=== PATIENT | male | born 1960 ===

== ENCOUNTER → 2021-07-19 | Outpatient (CLI) | payer BC | LOC: COL.VAS 11:48 | DX: R07.9 Chest pain, unspecified (principal) ==

== ENCOUNTER 2021-07-25 09:26 | Day surgery (SDC) | payer BC ==
--- NOTE | 2021-07-22 20:20 | NUR ---
Called pt to gather pre-op information for heart cath on July 25. Pt reports being on a nitro patch for the last 2 days. Pt has been having jaw and neck pain, therefore he was placed on nitro patch, per pt report. Encouraged pt to come to ED or call 911 if needed. pt also reports he is following all the directions "my chart" from [facility] has given him about his procedure. Pt declines doing medical history "over the phone and will do it in person".
[~2021-07-25] VITALS: Ht 175.3 cm; Wt 81.1 kg
[2021-07-25] VITALS (11 sets, daily range): BP systolic 113–138; BP diastolic 68–81; PULSE 51–67; TEMP 98.3–98.6
[2021-07-25 10:35] LABS: HEMATOCRIT 41.1 % (42.0-52.0); HEMOGLOBIN 14.3 g/dl (13.5-18.0); MEAN CELL VOLUME 90 fl (80.0-100.0); MEAN CORPUSCULAR HEMOGLOBIN 31 pg (27-31); MEAN CORPUSCULAR HGB CONC 35 g/dl (33.0-37.0); MEAN PLATELET VOLUME 9.5 fl (7.4-10.4); PLATELET COUNT 218 K/mm3 (130-400); RED BLOOD COUNT 4.57 M/mm3 (4.20-5.60); REDCELL DISTRIBUTION WIDTH-CV 12.6 % (11.5-14.5)
[2021-07-25] MEDS ORDERED: ASPIRIN 81M81 MG/TA2 PO (10:40)
[2021-07-25] MEDS ORDERED: TRULICITY1.5 MG/0.5 SQ (10:40)
[2021-07-25] MEDS ORDERED: ZESTRIL 20MG TA20 MG PO (10:41)
[2021-07-25] MEDS ORDERED: JARDIANCE25 PO (10:41)
[2021-07-25] MEDS ORDERED: GLUCOPHAGE500 MG/TAB PO ×2 (10:42)
[2021-07-25] MEDS ORDERED: CRESTOR 10MG10 MG PO (10:43)
[2021-07-25] MEDS ORDERED: PRILOSEC 20MG20 MG PO (10:43)
[2021-07-25] MEDS ORDERED: TOPROL XL 25MG25 MG PO (10:43)
[2021-07-25] MEDS ORDERED: NITRO-DUR0.2 MG/PAT TD (10:44)
[2021-07-25 10:48] LABS: PROTHROMBIN TIME 11.3 SECONDS (9.7-12.8)
[2021-07-25 10:51] LABS: PARTIAL THROMBOPLASTIN TIME 30.8 SECONDS (26.0-37.0)
[2021-07-25 10:52] LABS: CALCIUM 9.1 mg/dL (8.4-10.2); CREATININE, serum 0.91 mg/dL (0.72-1.25)
--- NOTE | 2021-07-25 13:12 | NUR ---
See merge for all medication, assessment, intervention, and vital sign times.
--- NOTE | 2021-07-25 14:09 | NUR ---
Report received from Dr Sue pt to transfer to floor.
--- NOTE | 2021-07-25 16:08 | NUR ---
5 ML OF AIR TAKEN FROM RADIAL BAND. NO SIGNS OR SYMPTOMS OF BLEEDING. SITE SOFT AND FREE FROM HEMATOMA.
--- NOTE | 2021-07-25 16:12 | NUR ---
PT TO BE CONTACTED BY STAFF TO REVIEW CVD RISK FACTORS AND SCHEDULE FOR CARDIAC REHAB. CONTACT INFOMRATION COLLECTED WILL FOLLOW UP POST DISCHARGE.
--- NOTE | 2021-07-25 16:25 | NUR ---
Patient admitted to room 327 from animal laboratory helper. Report recieved from DIPIKA Amaya. Pharmacy, allergies, and medications reviewed. Admission paperwork completed. Radial band in place with 15 ml of air. Site is soft and free from hematoma. Patient states that he has 2/10 aching pain in jaw., but denies any further pain or discomfort. Call light in reach. Dynamap in use for post op vitals. VSS. Patient A&O.
--- NOTE | 2021-07-25 16:45 | NUR ---
Patient informed this RN that radial site was "Oozing." 3 ml of air reinserted into radial band.
--- NOTE | 2021-07-25 17:27 | NUR ---
3 ml of air of air taken out of radial band. No s/s of bleeding at this time. Site soft and free from hematoma.
--- NOTE | 2021-07-25 18:06 | NUR ---
3 ml of air taken from radial band. No s/s of bleeding. Site soft and free from hematoma.
--- NOTE | 2021-07-25 20:30 | NUR ---
PER SHIFT REPORT FROM DOMINIC, RN- PT HAS 9MLS OF AIR REMAINING, HAD X1 EPISODE OF SLIGHT OOZING EARLIER THIS EVENING, BUT NONE SINCE, 3MLS OF AIR REMOVED @THIS TIME.
--- NOTE | 2021-07-25 21:00 | NUR ---
3 MLS OF AIR REMOVED FROM COMPRESSION BAND, NO ACTIVE BLEEDING NOTED
--- NOTE | 2021-07-25 21:30 | NUR ---
LAST 3 MLS OF AIR REMOVED FROM COMPRESSION BAND, NO BLEEDING @THIS TIME
--- NOTE | 2021-07-25 22:00 | NUR ---
radial compression device removed, no active bleeding noted, site is soft, without hematoma
[2021-07-26] VITALS: BP 122/74; PULSE 67; TEMP 98.5
[2021-07-26 04:20] VITALS: BP 123/74; PULSE 62; TEMP 97.6
[2021-07-26 06:50] LABS: BASO # 0.1 K/mm3 (0.0-0.2); BASO % 0.7 % (0.0-2.0); EOS # 0.2 K/mm3 (0.0-0.7); EOS % 2.3 % (0.0-4.0); GRAN # 7.7 K/mm3 (1.4-6.5); GRAN % 72.2 % (42.2-75.2); HEMATOCRIT 45.1 % (42.0-52.0); HEMOGLOBIN 14.7 g/dl (13.5-18.0); LYMPH # 1.9 K/mm3 (1.2-3.4); LYMPH % 17.8 % (20.0-51.0); MEAN CELL VOLUME 96 fl (80.0-100.0); MEAN CORPUSCULAR HEMOGLOBIN 31 pg (27-31); MEAN CORPUSCULAR HGB CONC 33 g/dl (33.0-37.0); MEAN PLATELET VOLUME 9.6 fl (7.4-10.4); MONO # 0.7 K/mm3 (0.1-0.6); MONO % 6.7 % (1.7-9.3); PLATELET COUNT 213 K/mm3 (130-400); RED BLOOD COUNT 4.71 M/mm3 (4.20-5.60); REDCELL DISTRIBUTION WIDTH-CV 12.7 % (11.5-14.5)
[2021-07-26 07:11] LABS: CREATININE, serum 0.94 mg/dL (0.72-1.25); POTASSIUM 4.2 mmol/L (3.5-4.5)
--- NOTE | 2021-07-26 07:30 | NUR ---
Assessment complete. A&Ox4. Denies pain/nausea/shortness of breath. VS remain stable. Right radial cath site WNL-bandaid CDI. Plan of care discussed for medications/calling for questions/concerns. Verbalizes understanding. Call light in reaCh. Will monitor.
[2021-07-26 08:01] VITALS: BP 145/89; PULSE 61; TEMP 97.6
[2021-07-26 12:00] VITALS: BP 141/75; PULSE 57; TEMP 98.9
--- NOTE | 2021-07-26 12:37 | NUR ---
forming process worker met with patient to complete intake and discuss discharge plan. Patient's Marie ([phone]) present at bedside. Patient lives at home with his in [place]. He is independent with his ADL's and does not utilize any DME to assist with ambulation. He has no home oxygen needs. PCP is and they utilize [facility] for medications. Patient does not have a DPOA-HC established but it wishing to create one. Patient's asks if she can complete one as well. Forms and education provided. Agent's listed are their two daughters. This SW and SW Kellen witness forms. Copy of patient's placed in the chart. His originial, Marie's original and additional copies of each are provided back to them. Patient is planning on returning home with no concerns. Discharge plan:Home
[2021-07-26] MEDS ORDERED: BRILINTA90 MG PO (13:32)
--- NOTE | 2021-07-26 14:45 | NUR ---
Discharge instructions given both verbal and handwritten. Discussed f/u appt, s/s of infection and when to notifiy physician. INT to left forearm DCd-cath intact. Tele monitor removed. Questions answered. Instructed to call w hen ride is here to be pushed off floor. Verbalizes understanding. Call light in reach. Will monitor.
--- NOTE | 2021-07-26 15:30 | NUR ---
Escorted off floor by Malia, PCT and family in stable condition.
== END 2021-07-26 15:30 | disposition home or self-care (01) ==
LOC: COL.CAR 09:26 → SURG 15:18 → COL.CAR 07-26 15:30
PROVIDERS: Internal Medicine Cardiovascular Disease
DX: I25.110 Atherosclerotic heart disease of native coronary artery with unstable angina pectoris (principal); I10 Essential (primary) hypertension; E78.2 Mixed hyperlipidemia; E11.9 Type 2 diabetes mellitus without complications; Z79.84 Long term (current) use of oral hypoglycemic drugs; Z79.899 Other long term (current) drug therapy; Z79.82 Long term (current) use of aspirin; Z87.891 Personal history of nicotine dependence
CPT/HCPCS: OP; A9270; C1769; C1874; C1887; C9600; J0583; J1644; J2250; J3010

== ENCOUNTER 2021-08-31 12:57 | Outpatient (RCR) | payer BC ==
[~2021-08-31 12:57] MED LIST: ASPIRIN 81M81 MG/TA2 PO; BRILINTA90 MG PO; CRESTOR 10MG10 MG PO; GLUCOPHAGE500 MG/TAB PO; JARDIANCE25 PO; NITRO-DUR0.2 MG/PAT TD; PRILOSEC 20MG20 MG PO; TOPROL XL 25MG25 MG PO; TRULICITY1.5 MG/0.5 SQ; ZESTRIL 20MG TA20 MG PO
== END 2021-09-04 | disposition home or self-care (01) ==
LOC: COL.CR
DX: Z48.812 Encounter for surgical aftercare following surgery on the circulatory system (principal); Z95.5 Presence of coronary angioplasty implant and graft

== ENCOUNTER → 2021-09-23 | Outpatient (CLI) | payer BC ==
[2021-09-23 10:57] LABS: BASO # 0.1 K/mm3 (0.0-0.2); BASO % 0.6 % (0.0-2.0); EOS # 0.2 K/mm3 (0.0-0.7); EOS % 1.5 % (0.0-4.0); GRAN # 8.7 K/mm3 (1.4-6.5); GRAN % 75.2 % (42.2-75.2); HEMATOCRIT 47.7 % (42.0-52.0); HEMOGLOBIN 16.1 g/dl (13.5-18.0); MEAN CELL VOLUME 91 fl (80.0-100.0); MEAN CORPUSCULAR HEMOGLOBIN 31 pg (27-31); MEAN CORPUSCULAR HGB CONC 34 g/dl (33.0-37.0); MEAN PLATELET VOLUME 9.6 fl (7.4-10.4); MONO # 0.6 K/mm3 (0.1-0.6); MONO % 5.4 % (1.7-9.3); PLATELET COUNT 274 K/mm3 (130-400); RED BLOOD COUNT 5.27 M/mm3 (4.20-5.60); REDCELL DISTRIBUTION WIDTH-CV 11.9 % (11.5-14.5)
[2021-09-23 11:16] LABS: ALANINE AMINOTRANSFERASE 42 U/L (0-55); ALBUMIN 4.3 gm/dL (3.4-4.8); ALKALINE PHOSPHATASE 78 U/L (40-150); ANION GAP 10 mmol/L (7-16); AST,SGOT 30 U/L (5-34); BILIRUBIN,TOTAL 1.1 mg/dL (0.2-1.2); BLOOD UREA NITROGEN 30 mg/dL (8-26); CALCIUM 10.7 mg/dL (8.4-10.2); CARBON DIOXIDE 26 mmol/L (23-31); CHLORIDE 102 mmol/L (98-107); GLUCOSE 128 mg/dL (70-99); POTASSIUM 4.7 mmol/L (3.5-4.5); SODIUM 138 mmol/L (136-145); TOTAL PROTEIN 8.2 gm/dL (6.2-8.1)
[2021-09-23 11:24] LABS: TROPONIN-I < 0.010 ng/mL (0.00-0.033)
== END ==
LOC: COL.LAB 10:04
PROVIDERS: Family Medicine
DX: I25.119 Atherosclerotic heart disease of native coronary artery with unspecified angina pectoris (principal)

== ENCOUNTER 2021-09-26 12:29 | Outpatient (RCR) | payer BC | END 2021-09-28 07:12 | disposition home or self-care (01) | LOC: COL.CR 12:29 | DX: Z48.812 Encounter for surgical aftercare following surgery on the circulatory system (principal); Z95.5 Presence of coronary angioplasty implant and graft ==

== ENCOUNTER → 2021-10-05 | Outpatient (RCR) | payer SELFPAY | LOC: COL.CR | DX: Z29.8 Encounter for other specified prophylactic measures (principal) ==